=== PATIENT | female | born 1945 | race Caucasian/White ===

== ENCOUNTER 2020-03-06 16:59 | Inpatient (IN) | payer OTHER ==
[2020-03-06] VITALS (15 sets, daily range): BP systolic 57–143; BP diastolic 30–102
[~2020-03-06] VITALS: Ht 160 cm; Wt 68.0 kg
[2020-03-06] MEDS ORDERED: SODIUM CHLORIDE 0.9% 1,000 ML IV ONE (17:12)
[2020-03-06 18:15] LABS: CLARITY URINE CLEAR (CLEAR); COLOR URINE YELLOW (YELLOW); KETONES URINE NEGATIVE (NEGATIVE); LEUKOCYTE ESTERASE URINE 1+ (NEGATIVE); NITRITE URINE NEGATIVE (NEGATIVE); OCCULT BLOOD URINE NEGATIVE (NEGATIVE); PROTEIN URINE NEGATIVE (NEGATIVE); SPECIFIC GRAVITY URINE 1.023 (1.005-1.030); UROBILINOGEN URINE 0.2 E.U./dL (0.2-1.0)
[2020-03-06 18:20] LABS: BASOPHILS % 0.5 % (0.0-2.0); EOSINOPHILS % 0.4 % (0.0-5.0); LYMPHOCYTES % 19.8 % (20.0-50.0); MEAN CORPUSCULAR VOLUME 92.3 fL (81.0-99.0); MEAN PLATELET VOLUME 8.8 fl (7.4-10.4); MONOCYTES % 6.4 % (2.0-8.0); NEUTROPHILS % 72.9 % (40.0-76.0); PLATELET 360 x1000/uL (130-400); RED CELL DISTRIBUTION WIDTH 15.1 % (11.6-14.6)
[2020-03-06 18:23] LABS: CHLORIDE 102 mEq/L (98-107)
[2020-03-06] MEDS ORDERED: CEFTRIAXONE 1 G PREMIX 50 ML IV ONE (18:30)
[2020-03-06 18:34] LABS: HEMOGLOBIN. 6.6 g/dL (12.0-16.0)
[2020-03-06 18:35] LABS: HEMATOCRIT. 20.3 % (36.0-48.0)
[2020-03-06] MEDS ORDERED: MIDAZOLAM HCL 50 MG in DEXTROSE 5% WATER 40 ML IV ONE (18:45)
[2020-03-06] MEDS ORDERED: FENTANYL CITRATE/PF 1,000 MCG in SODIUM CHLORIDE 0.9% 80 ML IV PRN ×2 (18:45→18:55)
[2020-03-06] MEDS ORDERED: MIDAZOLAM HCL 50 MG in DEXTROSE 5% WATER 40 ML IV NR (18:55)
[2020-03-06] MEDS ORDERED: ETOMIDATE 2MG/ML 10ML VIAL IV ONE (19:45)
[2020-03-06] MEDS ORDERED: ASPIRIN 300MG SUPP PR ONE (19:45)
[2020-03-06] MEDS ORDERED: DEXTROSE 50% WATER 50ML SYRINGE IV PRN (21:00)
[2020-03-06] MEDS ORDERED: LORAZEPAM 2MG/ML CPJ IV PRN (21:00)
[2020-03-06 21:01] LABS: BG BASE EXCESS -6.2 mmol/L (-2.0-2.0); BG CARBOXYHEMOGLOBIN 0.3 % (0.5-1.5); BG DEOXYHEMOGLOBIN 0.3 % (0.0-5.0); BG FRACTION INSPIRED OXYGEN 100; BG HCO3 ACT 19.9 mmol/L (22.0-26.0); BG METHEMOGLOBIN 0.5 % (0.0-1.5); BG OXYGEN SATURATION 99.7 % (92.0-98.5); BG OXYHEMOGLOBIN 98.9 % (94.0-97.0); BG PCO2 42.7 mmHg (35.0-45.0); BG PH 7.287 (7.350-7.450); BG PO2 463.7 mmHg (75.0-100.0); BG SAMPLE SITE LEFT FEMORAL; BG TIDAL VOLUME(mL) 500 mL; BG TOTAL HEMOGLOBIN 7.9 g/dL (12.0-18.0); BG VENT MODE VENT - A/C; BG VENT RATE 16 set
[2020-03-06] MEDS ORDERED: SODIUM CHLORIDE 0.9% 1,000 ML IV SCH (21:15)
[2020-03-06] MEDS ORDERED: AZITHROMYCIN 500 MG in DEXT 5% WATER 250 ML IV SCH ×2 (21:25→23:45)
[2020-03-06] MEDS: BLOOD SUGAR DIAGNOSTIC STRIP TEST SCH ×2 (21:25→23:38)
[2020-03-06] MEDS: INSULIN LISPRO 100 UNITS/ML SUBCUT SCH ×2 (21:35→23:42)
[2020-03-06] MEDS ORDERED: NOREPINEPHRINE 4MG/250ML PMX 250 ML IV PRN (21:45)
[2020-03-06] MEDS ORDERED: NOREPINEPHRINE 4 MG in DEXT 5% WATER 246 ML IV PRN ×2 (23:00→23:15)
[2020-03-06] MEDS: SODIUM CHLORIDE 0.9% INJ 3ML FLUSH IVF SCH (23:26)
[2020-03-06] MEDS ORDERED: NOREPINEPHRINE 16 MG in DEXT 5% WATER 234 ML IV PRN (23:30)
[2020-03-07] VITALS (59 sets, daily range): BP systolic 64–192; BP diastolic 41–123
[2020-03-07] MEDS ORDERED: [UNRECOGNIZED DRUG - CODE] PO (00:31)
[2020-03-07] MEDS ORDERED: LISI-604 MT (00:31)
[2020-03-07] MEDS ORDERED: NAPR-681 MT (00:31)
[2020-03-07] MEDS ORDERED: METF1000 MT (00:31)
[2020-03-07] MEDS: FENTANYL CITRATE/PF 1,000 MCG in SODIUM CHLORIDE 0.9% 80 ML IV PRN ×2 (01:01→15:24)
[2020-03-07 05:49] LABS: BASOPHILS % 0.2 % (0.0-2.0); EOSINOPHILS % 1.2 % (0.0-5.0); HEMATOCRIT. 25.1 % (36.0-48.0); HEMOGLOBIN. 8.3 g/dL (12.0-16.0); LYMPHOCYTES % 20.3 % (20.0-50.0); MEAN CORPUSCULAR HEMOGLOBIN 30.2 pg (28.0-32.0); MEAN CORPUSCULAR VOLUME 91.3 fL (81.0-99.0); MEAN PLATELET VOLUME 8.7 fl (7.4-10.4); MONOCYTES % 14.3 % (2.0-8.0); PLATELET 246 x1000/uL (130-400); RED BLOOD CELL COUNT 2.75 mill/uL (4.2-5.4)
[2020-03-07] MEDS: MIDAZOLAM HCL 100 MG in DEXT 5% WATER 80 ML IV PRN (05:55)
[2020-03-07] MEDS: SODIUM CHLORIDE 0.9% INJ 3ML FLUSH IVF SCH ×3 (05:55→20:44)
[2020-03-07 05:56] LABS: CHLORIDE 106 mEq/L (98-107)
[2020-03-07] MEDS: INSULIN LISPRO 100 UNITS/ML SUBCUT SCH ×3 (06:00→17:22)
[2020-03-07 06:05] LABS: PHOSPHORUS 3.1 mg/dL (2.5-4.9)
[2020-03-07] MEDS: BLOOD SUGAR DIAGNOSTIC STRIP TEST SCH ×3 (06:38→17:22)
[2020-03-07 08:50] LABS: BG BASE EXCESS -4.9 mmol/L (-2.0-2.0); BG CARBOXYHEMOGLOBIN 0.1 % (0.5-1.5); BG DEOXYHEMOGLOBIN 2.2 % (0.0-5.0); BG FRACTION INSPIRED OXYGEN 40; BG HCO3 ACT 19.1 mmol/L (22.0-26.0); BG METHEMOGLOBIN 0.1 % (0.0-1.5); BG OXYGEN SATURATION 97.8 % (92.0-98.5); BG OXYHEMOGLOBIN 97.6 % (94.0-97.0); BG PCO2 30.7 mmHg (35.0-45.0); BG PH 7.412 (7.350-7.450); BG PO2 112.9 mmHg (75.0-100.0); BG SAMPLE SITE RIGHT RADIAL; BG TIDAL VOLUME(mL) 500 mL; BG TOTAL HEMOGLOBIN 7.3 g/dL (12.0-18.0); BG VENT MODE VENT - A/C; BG VENT RATE 20 set
[2020-03-07] MEDS: PANTOPRAZOLE SODIUM 40 MG/VIAL IV SCH (08:50)
[2020-03-07 11:57] LABS: VITAMIN B12 SERUM 561 pg/mL (211-911)
[2020-03-07] MEDS: FUROSEMIDE 40MG/4ML VIAL IVP SCH ×2 (13:04→17:21)
[2020-03-07] MEDS ORDERED: CEFTRIAXONE 1 G PREMIX 50 ML IV SCH (18:00)
[2020-03-07] MEDS: CEFTRIAXONE 1 G PREMIX 50 ML IV SCH (18:14)
[2020-03-07] MEDS: AZITHROMYCIN 500 MG in DEXT 5% WATER 250 ML IV SCH (20:44)
[2020-03-07] MEDS: ACETAMINOPHEN 650MG/20.3ML UDC NG PRN (21:09)
[2020-03-08] VITALS (70 sets, daily range): BP systolic 82–141; BP diastolic 37–86
[2020-03-08] MEDS: BLOOD SUGAR DIAGNOSTIC STRIP TEST SCH ×4 (00:13→18:37)
[2020-03-08] MEDS: INSULIN LISPRO 100 UNITS/ML SUBCUT SCH ×4 (00:28→18:56)
[2020-03-08] MEDS: SODIUM CHLORIDE 0.9% INJ 3ML FLUSH IVF SCH ×3 (05:25→22:00)
[2020-03-08 06:38] LABS: BASOPHILS % 0.4 % (0.0-2.0); EOSINOPHILS % 0.7 % (0.0-5.0); HEMATOCRIT. 23.5 % (36.0-48.0); LYMPHOCYTES % 11.3 % (20.0-50.0); MEAN CORPUSCULAR VOLUME 88.3 fL (81.0-99.0); MEAN PLATELET VOLUME 8.6 fl (7.4-10.4); MONOCYTES % 3.8 % (2.0-8.0); NEUTROPHILS % 83.8 % (40.0-76.0); PLATELET 263 x1000/uL (130-400); RED BLOOD CELL COUNT 2.66 mill/uL (4.2-5.4); RED CELL DISTRIBUTION WIDTH 15.6 % (11.6-14.6)
[2020-03-08 06:46] LABS: INR 1.2; PROTHROMBIN TIME 12.8 sec (9.6-11.0)
[2020-03-08 06:53] LABS: CHLORIDE 104 mEq/L (98-107)
[2020-03-08 06:56] LABS: TOTAL IRON BINDING CAPACITY 250 ug/dL (250-450)
[2020-03-08 07:13] LABS: FOLIC ACID (FOLATE) SERUM 16.8 ng/mL (>5.38)
[2020-03-08 08:17] LABS: BG BASE EXCESS -0.7 mmol/L (-2.0-2.0); BG CARBOXYHEMOGLOBIN 0.5 % (0.5-1.5); BG DEOXYHEMOGLOBIN 0.9 % (0.0-5.0); BG HCO3 ACT 21.7 mmol/L (22.0-26.0); BG METHEMOGLOBIN 0.2 % (0.0-1.5); BG OXYGEN SATURATION 99.1 % (92.0-98.5); BG OXYHEMOGLOBIN 98.4 % (94.0-97.0); BG PCO2 26.8 mmHg (35.0-45.0); BG PH 7.526 (7.350-7.450); BG SAMPLE SITE RIGHT RADIAL; BG TIDAL VOLUME(mL) 500 mL; BG TOTAL HEMOGLOBIN 7.7 g/dL (12.0-18.0); BG VENT MODE VENT - A/C; BG VENT RATE 20 set
[2020-03-08] MEDS ORDERED: CYANOCOBALAMIN 1000MCG/ML VIAL IM SCH (08:45)
[2020-03-08] MEDS: FUROSEMIDE 40MG/4ML VIAL IVP SCH ×2 (09:38→17:41)
[2020-03-08] MEDS: ACETAMINOPHEN 650MG/20.3ML UDC NG PRN (09:38)
[2020-03-08] MEDS: PANTOPRAZOLE SODIUM 40 MG/VIAL IV SCH (09:38)
[2020-03-08] MEDS: INSULIN GLARGINE UD 100 UNITS/ML SYR SUBCUT SCH (10:19)
[2020-03-08] MEDS: METOCLOPRAMIDE HCL 10MG/2ML VIAL IV SCH ×2 (12:30→17:41)
[2020-03-08 17:35] LABS: *AMPHETAMINES SCREEN URINE NEGATIVE (NEGATIVE); *BARBITURATES SCREEN URINE NEGATIVE (NEGATIVE)
[2020-03-08 17:36] LABS: *BENZODIAZEPINES SCREEN URINE PRESUMTIVE POSITIVE (NEGATIVE); *COCAINE SCREEN URINE NEGATIVE (NEGATIVE); CANNABINOID URINE SCREEN NEGATIVE (NEGATIVE); METHADONE URINE SCREEN NEGATIVE (NEGATIVE); OPIATES URINE SCREEN NEGATIVE (NEGATIVE); PHENCYCLIDINE URINE SCREEN NEGATIVE (NEGATIVE)
[2020-03-08] MEDS: FENTANYL CITRATE/PF 1,000 MCG in SODIUM CHLORIDE 0.9% 80 ML IV PRN (17:42)
[2020-03-08] MEDS: MIDAZOLAM HCL 100 MG in DEXT 5% WATER 80 ML IV PRN (17:43)
[2020-03-08] MEDS: CEFTRIAXONE 1 G PREMIX 50 ML IV SCH (18:37)
[2020-03-09] VITALS (92 sets, daily range): BP systolic 84–150; BP diastolic 20–94
[2020-03-09] MEDS: METOCLOPRAMIDE HCL 10MG/2ML VIAL IV SCH ×4 (00:44→17:13)
[2020-03-09] MEDS: INSULIN LISPRO 100 UNITS/ML SUBCUT SCH ×4 (00:46→18:36)
[2020-03-09] MEDS: AZITHROMYCIN 500 MG in DEXT 5% WATER 250 ML IV SCH ×2 (01:35→21:05)
[2020-03-09] MEDS: BLOOD SUGAR DIAGNOSTIC STRIP TEST SCH ×4 (05:33→17:14)
[2020-03-09] MEDS: SODIUM CHLORIDE 0.9% INJ 3ML FLUSH IVF SCH ×3 (05:39→22:00)
[2020-03-09 06:37] LABS: HEMATOCRIT. 28.6 % (36.0-48.0); HEMOGLOBIN. 9.9 g/dL (12.0-16.0); MEAN CORPUSCULAR VOLUME 89.6 fL (81.0-99.0); RED BLOOD CELL COUNT 3.19 mill/uL (4.2-5.4); RED CELL DISTRIBUTION WIDTH 15.7 % (11.6-14.6)
[2020-03-09 07:18] LABS: CHLORIDE 107 mEq/L (98-107)
[2020-03-09 08:36] LABS: PLATELET 283 x1000/uL (130-400)
[2020-03-09 08:41] LABS: PLATELET ESTIMATE NORMAL
[2020-03-09] MEDS: FUROSEMIDE 40MG/4ML VIAL IVP SCH ×2 (09:28→17:13)
[2020-03-09] MEDS: PANTOPRAZOLE SODIUM 40 MG/VIAL IV SCH (09:28)
[2020-03-09] MEDS: INSULIN GLARGINE UD 100 UNITS/ML SYR SUBCUT SCH (10:04)
[2020-03-09] MEDS: SUCRALFATE 1 G/10 ML UDC PO SCH ×3 (12:58→21:05)
[2020-03-09] MEDS: CEFTRIAXONE 1 G PREMIX 50 ML IV SCH (17:13)
[2020-03-09] MEDS: MIDAZOLAM HCL 100 MG in DEXT 5% WATER 80 ML IV PRN (21:07)
[2020-03-09] MEDS: FENTANYL CITRATE/PF 1,000 MCG in SODIUM CHLORIDE 0.9% 80 ML IV PRN (21:08)
[2020-03-10] VITALS (93 sets, daily range): BP systolic 108–165; BP diastolic 55–90
[2020-03-10] MEDS: INSULIN LISPRO 100 UNITS/ML SUBCUT SCH ×3 (00:52→14:52)
[2020-03-10] MEDS: METOCLOPRAMIDE HCL 10MG/2ML VIAL IV SCH ×5 (00:53→23:48)
[2020-03-10] MEDS: BLOOD SUGAR DIAGNOSTIC STRIP TEST SCH ×4 (05:46→17:53)
[2020-03-10] MEDS: SODIUM CHLORIDE 0.9% INJ 3ML FLUSH IVF SCH ×3 (05:46→22:11)
[2020-03-10 06:14] LABS: BASOPHILS % 0.1 % (0.0-2.0); EOSINOPHILS % 2.3 % (0.0-5.0); HEMATOCRIT. 27.7 % (36.0-48.0); HEMOGLOBIN. 9.4 g/dL (12.0-16.0); MEAN CORPUSCULAR HEMOGLOBIN 30.2 pg (28.0-32.0); MEAN PLATELET VOLUME 8.7 fl (7.4-10.4); MONOCYTES % 8.7 % (2.0-8.0); NEUTROPHILS % 75.9 % (40.0-76.0); PLATELET 338 x1000/uL (130-400); RED BLOOD CELL COUNT 3.11 mill/uL (4.2-5.4); RED CELL DISTRIBUTION WIDTH 15.8 % (11.6-14.6)
[2020-03-10 06:48] LABS: CHLORIDE 103 mEq/L (98-107)
[2020-03-10 07:26] LABS: BG BASE EXCESS 0.4 mmol/L (-2.0-2.0); BG CARBOXYHEMOGLOBIN 0.3 % (0.5-1.5); BG DEOXYHEMOGLOBIN 1.5 % (0.0-5.0); BG FRACTION INSPIRED OXYGEN 35; BG HCO3 ACT 23.7 mmol/L (22.0-26.0); BG METHEMOGLOBIN 0.3 % (0.0-1.5); BG OXYGEN SATURATION 98.5 % (92.0-98.5); BG OXYHEMOGLOBIN 97.9 % (94.0-97.0); BG PCO2 32.9 mmHg (35.0-45.0); BG PH 7.475 (7.350-7.450); BG SAMPLE SITE RIGHT RADIAL; BG TIDAL VOLUME(mL) 500 mL; BG TOTAL HEMOGLOBIN 9.5 g/dL (12.0-18.0); BG VENT MODE VENT - A/C; BG VENT RATE 14 set
[2020-03-10] MEDS: FUROSEMIDE 40MG/4ML VIAL IVP SCH ×2 (10:17→18:10)
[2020-03-10] MEDS: SUCRALFATE 1 G/10 ML UDC PO SCH ×4 (10:17→21:09)
[2020-03-10] MEDS: PANTOPRAZOLE SODIUM 40 MG/VIAL IV SCH ×2 (10:17→21:09)
[2020-03-10] MEDS: INSULIN GLARGINE UD 100 UNITS/ML SYR SUBCUT SCH ×2 (14:52→22:14)
[2020-03-10] MEDS: CEFTRIAXONE 1 G PREMIX 50 ML IV SCH (18:10)
[2020-03-10] MEDS: ACETAMINOPHEN 650MG/20.3ML UDC NG PRN (21:17)
[2020-03-10] MEDS: AZITHROMYCIN 500 MG in DEXT 5% WATER 250 ML IV SCH (21:18)
[2020-03-11] VITALS (100 sets, daily range): BP systolic 107–182; BP diastolic 53–83
[2020-03-11] MEDS: BLOOD SUGAR DIAGNOSTIC STRIP TEST SCH ×5 (00:09→23:32)
[2020-03-11] MEDS: INSULIN LISPRO 100 UNITS/ML SUBCUT SCH ×5 (00:32→23:31)
[2020-03-11] MEDS: MIDAZOLAM HCL 100 MG in DEXT 5% WATER 80 ML IV PRN (03:43)
[2020-03-11 06:10] LABS: PARTIAL THROMBOPLASTIN TIME 26.9 sec (23.4-31.0); PROTHROMBIN TIME 10.6 sec (9.6-11.0)
[2020-03-11 06:13] LABS: BASOPHILS % 0.8 % (0.0-2.0); EOSINOPHILS % 7.3 % (0.0-5.0); HEMOGLOBIN. 10.3 g/dL (12.0-16.0); LYMPHOCYTES % 18.1 % (20.0-50.0); MEAN CORPUSCULAR HEMOGLOBIN 30.8 pg (28.0-32.0); MEAN CORPUSCULAR VOLUME 89.5 fL (81.0-99.0); MONOCYTES % 12.3 % (2.0-8.0); NEUTROPHILS % 61.5 % (40.0-76.0); PLATELET 387 x1000/uL (130-400); RED BLOOD CELL COUNT 3.35 mill/uL (4.2-5.4); RED CELL DISTRIBUTION WIDTH 15.7 % (11.6-14.6)
[2020-03-11] MEDS: SODIUM CHLORIDE 0.9% INJ 3ML FLUSH IVF SCH ×3 (06:22→22:01)
[2020-03-11] MEDS: METOCLOPRAMIDE HCL 10MG/2ML VIAL IV SCH ×3 (06:24→17:14)
[2020-03-11 06:59] LABS: CHLORIDE 101 mEq/L (98-107)
[2020-03-11] MEDS: SUCRALFATE 1 G/10 ML UDC PO SCH ×5 (07:30→21:09)
[2020-03-11] MEDS: INSULIN GLARGINE UD 100 UNITS/ML SYR SUBCUT SCH ×2 (10:00→22:04)
[2020-03-11] MEDS: PANTOPRAZOLE SODIUM 40 MG/VIAL IV SCH ×2 (10:25→21:09)
[2020-03-11] MEDS: FUROSEMIDE 40MG/4ML VIAL IVP SCH ×2 (10:25→17:14)
[2020-03-11] MEDS ORDERED: POTASSIUM CHLORIDE 20MEQ/PACKET PO NR (14:30)
[2020-03-11] MEDS ORDERED: SIMETHICONE 40 MG/0.6 ML 30ML ONE (16:28)
[2020-03-11] MEDS ORDERED: FENTANYL CITRATE/PF 50MCG/ML 2ML VIAL ONE (16:29)
[2020-03-11] MEDS ORDERED: MIDAZOLAM HCL 5 MG/5 ML VIAL ONE (16:29)
[2020-03-11] MEDS: FENTANYL CITRATE/PF 1,000 MCG in SODIUM CHLORIDE 0.9% 80 ML IV PRN (17:15)
[2020-03-12] VITALS (59 sets, daily range): BP systolic 112–173; BP diastolic 56–79
[2020-03-12] MEDS: METOCLOPRAMIDE HCL 10MG/2ML VIAL IV SCH ×5 (00:07→23:42)
[2020-03-12] MEDS ORDERED: MIDAZOLAM HCL 100 MG in DEXT 5% WATER 80 ML IV PRN (01:15)
[2020-03-12] MEDS: CLONIDINE 0.1MG TABLET NG PRN ×2 (05:14→20:12)
[2020-03-12] MEDS: BLOOD SUGAR DIAGNOSTIC STRIP TEST SCH ×4 (05:51→23:42)
[2020-03-12] MEDS: SODIUM CHLORIDE 0.9% INJ 3ML FLUSH IVF SCH ×3 (05:52→22:06)
[2020-03-12] MEDS: INSULIN LISPRO 100 UNITS/ML SUBCUT SCH ×4 (06:08→23:46)
[2020-03-12 06:35] LABS: BASOPHILS % 0.3 % (0.0-2.0); EOSINOPHILS % 0.9 % (0.0-5.0); HEMATOCRIT. 33.5 % (36.0-48.0); HEMOGLOBIN. 11.2 g/dL (12.0-16.0); LYMPHOCYTES % 7.9 % (20.0-50.0); MEAN CORPUSCULAR HEMOGLOBIN 30.1 pg (28.0-32.0); MEAN CORPUSCULAR VOLUME 89.8 fL (81.0-99.0); MEAN PLATELET VOLUME 8.3 fl (7.4-10.4); MONOCYTES % 11.5 % (2.0-8.0); NEUTROPHILS % 79.4 % (40.0-76.0); PLATELET 463 x1000/uL (130-400); RED BLOOD CELL COUNT 3.72 mill/uL (4.2-5.4); RED CELL DISTRIBUTION WIDTH 15.9 % (11.6-14.6)
[2020-03-12] MEDS: SUCRALFATE 1 G/10 ML UDC PO SCH ×4 (06:52→21:11)
[2020-03-12 06:53] LABS: CHLORIDE 97 mEq/L (98-107)
[2020-03-12] MEDS: FUROSEMIDE 40MG/4ML VIAL IVP SCH ×2 (09:14→18:02)
[2020-03-12] MEDS: INSULIN GLARGINE UD 100 UNITS/ML SYR SUBCUT SCH (09:32)
[2020-03-12] MEDS: ACETAMINOPHEN 650MG/20.3ML UDC NG PRN (18:01)
[2020-03-12] MEDS ORDERED: INSULIN GLARGINE UD 100 UNITS/ML SYR SUBCUT SCH (22:00)
[2020-03-13] VITALS (64 sets, daily range): BP systolic 101–170; BP diastolic 55–109
[2020-03-13] MEDS: ACETAMINOPHEN 650MG/20.3ML UDC NG PRN (00:02)
[2020-03-13] MEDS: BLOOD SUGAR DIAGNOSTIC STRIP TEST SCH ×4 (05:45→23:49)
[2020-03-13] MEDS: METOCLOPRAMIDE HCL 10MG/2ML VIAL IV SCH ×4 (05:45→23:47)
[2020-03-13] MEDS: SODIUM CHLORIDE 0.9% INJ 3ML FLUSH IVF SCH ×3 (05:45→21:17)
[2020-03-13] MEDS: INSULIN LISPRO 100 UNITS/ML SUBCUT SCH ×4 (05:54→23:48)
[2020-03-13] MEDS: SUCRALFATE 1 G/10 ML UDC PO SCH ×4 (06:48→21:17)
[2020-03-13] MEDS: CLONIDINE 0.1MG TABLET NG PRN (08:56)
[2020-03-13] MEDS: FUROSEMIDE 40MG/4ML VIAL IVP SCH ×2 (08:56→17:19)
[2020-03-13] MEDS: INSULIN GLARGINE UD 100 UNITS/ML SYR SUBCUT SCH ×2 (10:53→23:47)
[2020-03-13 15:51] LABS: BASOPHILS % 0.5 % (0.0-2.0); HEMATOCRIT. 32.4 % (36.0-48.0); HEMOGLOBIN. 11.2 g/dL (12.0-16.0); LYMPHOCYTES % 9.5 % (20.0-50.0); MEAN CORPUSCULAR HEMOGLOBIN 30.6 pg (28.0-32.0); MEAN CORPUSCULAR VOLUME 88.6 fL (81.0-99.0); MEAN PLATELET VOLUME 8.1 fl (7.4-10.4); MONOCYTES % 9.7 % (2.0-8.0); NEUTROPHILS % 79.3 % (40.0-76.0); PLATELET 540 x1000/uL (130-400); RED BLOOD CELL COUNT 3.66 mill/uL (4.2-5.4); RED CELL DISTRIBUTION WIDTH 15.8 % (11.6-14.6)
[2020-03-13 15:56] LABS: CHLORIDE 101 mEq/L (98-107)
[2020-03-14] VITALS (38 sets, daily range): BP systolic 93–165; BP diastolic 52–102
[2020-03-14] MEDS: BLOOD SUGAR DIAGNOSTIC STRIP TEST SCH ×4 (05:53→23:53)
[2020-03-14] MEDS: SODIUM CHLORIDE 0.9% INJ 3ML FLUSH IVF SCH (05:53)
[2020-03-14] MEDS: METOCLOPRAMIDE HCL 10MG/2ML VIAL IV SCH ×4 (05:53→23:53)
[2020-03-14] MEDS: INSULIN LISPRO 100 UNITS/ML SUBCUT SCH ×3 (05:54→17:31)
[2020-03-14 06:16] LABS: BASOPHILS % 0.4 % (0.0-2.0); EOSINOPHILS % 0.4 % (0.0-5.0); HEMATOCRIT. 34.8 % (36.0-48.0); HEMOGLOBIN. 11.5 g/dL (12.0-16.0); LYMPHOCYTES % 9.2 % (20.0-50.0); MEAN CORPUSCULAR HEMOGLOBIN 29.6 pg (28.0-32.0); MEAN CORPUSCULAR VOLUME 89.4 fL (81.0-99.0); MEAN PLATELET VOLUME 8.5 fl (7.4-10.4); MONOCYTES % 9.8 % (2.0-8.0); NEUTROPHILS % 80.2 % (40.0-76.0); PLATELET 575 x1000/uL (130-400); RED BLOOD CELL COUNT 3.89 mill/uL (4.2-5.4); RED CELL DISTRIBUTION WIDTH 16.2 % (11.6-14.6)
[2020-03-14] MEDS: ACETAMINOPHEN 650MG/20.3ML UDC NG PRN (07:39)
[2020-03-14] MEDS: SUCRALFATE 1 G/10 ML UDC PO SCH ×4 (10:41→20:20)
[2020-03-14] MEDS: LORAZEPAM 2MG/ML CPJ IV PRN (10:41)
[2020-03-14] MEDS: FUROSEMIDE 40MG/4ML VIAL IVP SCH ×2 (10:42→17:22)
[2020-03-14] MEDS: INSULIN GLARGINE UD 100 UNITS/ML SYR SUBCUT SCH ×2 (11:15→21:27)
[2020-03-14] MEDS ORDERED: VANCOMYCIN 1500MG in DEXTROSE 5% WATER 250ML IV SCH (16:00)
[2020-03-14 16:02] LABS: CLARITY URINE CLEAR (CLEAR); COLOR URINE YELLOW (YELLOW); KETONES URINE NEGATIVE (NEGATIVE); LEUKOCYTE ESTERASE URINE TRACE (NEGATIVE); NITRITE URINE NEGATIVE (NEGATIVE); OCCULT BLOOD URINE 2+ (NEGATIVE); PROTEIN URINE 1+ (NEGATIVE); SPECIFIC GRAVITY URINE 1.018 (1.005-1.030); UROBILINOGEN URINE 0.2 E.U./dL (0.2-1.0)
[2020-03-14] MEDS: CEFEPIME 1,000 MG in DEXTROSE 5% WATER 50 ML IV SCH (17:32)
[2020-03-15] VITALS (31 sets, daily range): BP systolic 101–156; BP diastolic 33–90
[2020-03-15] MEDS: INSULIN LISPRO 100 UNITS/ML SUBCUT SCH ×4 (00:14→18:21)
[2020-03-15] MEDS: BLOOD SUGAR DIAGNOSTIC STRIP TEST SCH ×3 (06:08→18:00)
[2020-03-15] MEDS: METOCLOPRAMIDE HCL 10MG/2ML VIAL IV SCH ×3 (06:08→18:09)
[2020-03-15] MEDS: CEFEPIME 1,000 MG in DEXTROSE 5% WATER 50 ML IV SCH ×2 (06:08→18:19)
[2020-03-15] MEDS: SUCRALFATE 1 G/10 ML UDC PO SCH ×4 (09:23→22:05)
[2020-03-15] MEDS: SODIUM CHLORIDE 0.9% 1,000 ML IV SCH ×2 (09:23→18:10)
[2020-03-15] MEDS: FUROSEMIDE 40MG/4ML VIAL IVP SCH ×2 (09:23→18:08)
[2020-03-15 09:52] LABS: BG BASE EXCESS 7.9 mmol/L (-2.0-2.0); BG CARBOXYHEMOGLOBIN 0.3 % (0.5-1.5); BG DEOXYHEMOGLOBIN 1.2 % (0.0-5.0); BG FRACTION INSPIRED OXYGEN 35; BG HCO3 ACT 31.8 mmol/L (22.0-26.0); BG METHEMOGLOBIN 0.1 % (0.0-1.5); BG OXYGEN SATURATION 98.8 % (92.0-98.5); BG OXYHEMOGLOBIN 98.4 % (94.0-97.0); BG PCO2 41.5 mmHg (35.0-45.0); BG PH 7.502 (7.350-7.450); BG PO2 146.2 mmHg (75.0-100.0); BG PRESSURE SUPPORT 12; BG SAMPLE SITE RIGHT RADIAL; BG TIDAL VOLUME(mL) 500 mL; BG TOTAL HEMOGLOBIN 11.4 g/dL (12.0-18.0); BG VENT MODE VENT - SIMV; BG VENT RATE 8 set
[2020-03-15] MEDS: INSULIN GLARGINE UD 100 UNITS/ML SYR SUBCUT SCH ×2 (09:52→22:05)
[2020-03-15] MEDS: VANCOMYCIN 1 G PREMIX 200 ML IV SCH (10:05)
[2020-03-15 12:29] LABS: BG BASE EXCESS 6.7 mmol/L (-2.0-2.0); BG CARBOXYHEMOGLOBIN 0.1 % (0.5-1.5); BG DEOXYHEMOGLOBIN 0.8 % (0.0-5.0); BG FRACTION INSPIRED OXYGEN 35; BG HCO3 ACT 28.1 mmol/L (22.0-26.0); BG METHEMOGLOBIN 0.2 % (0.0-1.5); BG OXYGEN SATURATION 99.2 % (92.0-98.5); BG OXYHEMOGLOBIN 98.9 % (94.0-97.0); BG PCO2 29.8 mmHg (35.0-45.0); BG PH 7.593 (7.350-7.450); BG PO2 147.3 mmHg (75.0-100.0); BG PRESSURE SUPPORT 14; BG SAMPLE SITE RIGHT BRACHIAL; BG TIDAL VOLUME(mL) 500 mL; BG VENT MODE VENT - SIMV; BG VENT RATE 6 set
[2020-03-16] VITALS (29 sets, daily range): BP systolic 101–146; BP diastolic 47–79
[2020-03-16] MEDS: BLOOD SUGAR DIAGNOSTIC STRIP TEST SCH ×4 (00:31→23:23)
[2020-03-16] MEDS: METOCLOPRAMIDE HCL 10MG/2ML VIAL IV SCH ×5 (00:31→23:09)
[2020-03-16] MEDS: INSULIN LISPRO 100 UNITS/ML SUBCUT SCH ×5 (00:35→23:23)
[2020-03-16] MEDS: SODIUM CHLORIDE 0.9% 1,000 ML IV SCH ×3 (00:36→23:29)
[2020-03-16] MEDS: VANCOMYCIN 1 G PREMIX 200 ML IV SCH (04:41)
[2020-03-16] MEDS: CEFEPIME 1,000 MG in DEXTROSE 5% WATER 50 ML IV SCH ×2 (05:55→17:33)
[2020-03-16] MEDS: SUCRALFATE 1 G/10 ML UDC PO SCH ×4 (08:22→21:18)
[2020-03-16] MEDS: FUROSEMIDE 40MG/4ML VIAL IVP SCH ×2 (08:22→17:33)
[2020-03-16] MEDS: INSULIN GLARGINE UD 100 UNITS/ML SYR SUBCUT SCH ×2 (11:10→23:05)
[2020-03-16] MEDS ORDERED: PANTOPRAZOLE SODIUM 40 MG/VIAL IV SCH (11:45)
[2020-03-16 12:20] LABS: BG BASE EXCESS 8.1 mmol/L (-2.0-2.0); BG CARBOXYHEMOGLOBIN 0.3 % (0.5-1.5); BG DEOXYHEMOGLOBIN 1.7 % (0.0-5.0); BG FRACTION INSPIRED OXYGEN 35; BG HCO3 ACT 31.7 mmol/L (22.0-26.0); BG METHEMOGLOBIN 0.4 % (0.0-1.5); BG OXYGEN SATURATION 98.3 % (92.0-98.5); BG OXYHEMOGLOBIN 97.6 % (94.0-97.0); BG PCO2 40.6 mmHg (35.0-45.0); BG PH 7.511 (7.350-7.450); BG PO2 136.1 mmHg (75.0-100.0); BG PRESSURE SUPPORT 14; BG SAMPLE SITE RIGHT RADIAL; BG TOTAL HEMOGLOBIN 10.8 g/dL (12.0-18.0); BG VENT MODE VENT - CPAP
[2020-03-16] MEDS: LORAZEPAM 2MG/ML CPJ IV PRN (15:56)
[2020-03-16] MEDS: PANTOPRAZOLE SODIUM 40 MG/VIAL IV SCH (21:18)
[2020-03-17] VITALS (35 sets, daily range): BP systolic 95–142; BP diastolic 37–69
[2020-03-17] MEDS: LORAZEPAM 2MG/ML CPJ IV PRN ×2 (03:34→20:17)
[2020-03-17] MEDS: CEFEPIME 1,000 MG in DEXTROSE 5% WATER 50 ML IV SCH ×2 (05:33→17:00)
[2020-03-17] MEDS: BLOOD SUGAR DIAGNOSTIC STRIP TEST SCH ×3 (05:33→17:01)
[2020-03-17] MEDS: METOCLOPRAMIDE HCL 10MG/2ML VIAL IV SCH ×4 (05:33→23:03)
[2020-03-17] MEDS: INSULIN LISPRO 100 UNITS/ML SUBCUT SCH ×4 (05:34→23:09)
[2020-03-17 08:22] LABS: CHLORIDE 115 mEq/L (98-107)
[2020-03-17] MEDS: SUCRALFATE 1 G/10 ML UDC PO SCH ×4 (08:26→20:17)
[2020-03-17] MEDS: FUROSEMIDE 40MG/4ML VIAL IVP SCH ×2 (08:26→16:28)
[2020-03-17] MEDS: PANTOPRAZOLE SODIUM 40 MG/VIAL IV SCH ×2 (08:26→20:17)
[2020-03-17] MEDS: SODIUM CHLORIDE 0.9% 1,000 ML IV SCH (10:10)
[2020-03-17] MEDS: INSULIN GLARGINE UD 100 UNITS/ML SYR SUBCUT SCH ×2 (10:57→23:03)
[2020-03-17] MEDS ORDERED: POTASSIUM CHLORIDE 20MEQ/PACKET NG SCH (13:15)
[2020-03-17] MEDS: SODIUM CHLORIDE 0.45% 1,000 ML IV SCH (15:50)
[2020-03-18] VITALS (41 sets, daily range): BP systolic 95–145; BP diastolic 28–87
[2020-03-18] MEDS: ONDANSETRON HCL 4MG/2ML INJ IV PRN (04:33)
[2020-03-18] MEDS: METOCLOPRAMIDE HCL 10MG/2ML VIAL IV SCH ×4 (05:39→23:06)
[2020-03-18] MEDS: CEFEPIME 1,000 MG in DEXTROSE 5% WATER 50 ML IV SCH ×2 (05:39→17:44)
[2020-03-18] MEDS: INSULIN LISPRO 100 UNITS/ML SUBCUT SCH ×4 (06:00→23:01)
[2020-03-18] MEDS: BLOOD SUGAR DIAGNOSTIC STRIP TEST SCH ×5 (06:00→23:01)
[2020-03-18 06:34] LABS: EOSINOPHILS % 7.6 % (0.0-5.0); HEMATOCRIT. 30.8 % (36.0-48.0); HEMOGLOBIN. 10.2 g/dL (12.0-16.0); LYMPHOCYTES % 14.3 % (20.0-50.0); MEAN CORPUSCULAR HEMOGLOBIN 29.9 pg (28.0-32.0); MEAN CORPUSCULAR VOLUME 90.2 fL (81.0-99.0); MEAN PLATELET VOLUME 9.4 fl (7.4-10.4); MONOCYTES % 8.7 % (2.0-8.0); NEUTROPHILS % 68.4 % (40.0-76.0); PLATELET 538 x1000/uL (130-400); RED BLOOD CELL COUNT 3.42 mill/uL (4.2-5.4); RED CELL DISTRIBUTION WIDTH 15.6 % (11.6-14.6)
[2020-03-18 08:09] LABS: CHLORIDE 114 mEq/L (98-107)
[2020-03-18 09:54] LABS: BG BASE EXCESS 5.8 mmol/L (-2.0-2.0); BG CARBOXYHEMOGLOBIN 0.3 % (0.5-1.5); BG DEOXYHEMOGLOBIN 1.6 % (0.0-5.0); BG FRACTION INSPIRED OXYGEN 35; BG HCO3 ACT 30.6 mmol/L (22.0-26.0); BG METHEMOGLOBIN 0.3 % (0.0-1.5); BG OXYGEN SATURATION 98.4 % (92.0-98.5); BG OXYHEMOGLOBIN 97.8 % (94.0-97.0); BG PCO2 45.3 mmHg (35.0-45.0); BG PH 7.447 (7.350-7.450); BG PO2 115.1 mmHg (75.0-100.0); BG PRESSURE SUPPORT 8; BG SAMPLE SITE RIGHT RADIAL; BG TOTAL HEMOGLOBIN 10.2 g/dL (12.0-18.0); BG VENT MODE VENT - CPAP
[2020-03-18] MEDS: SUCRALFATE 1 G/10 ML UDC PO SCH ×4 (09:55→20:37)
[2020-03-18] MEDS: PANTOPRAZOLE SODIUM 40 MG/VIAL IV SCH ×2 (09:55→20:37)
[2020-03-18] MEDS: FUROSEMIDE 40MG/4ML VIAL IVP SCH ×2 (09:55→17:44)
[2020-03-18] MEDS: SODIUM CHLORIDE 0.45% 1,000 ML IV SCH (09:56)
[2020-03-18] MEDS: INSULIN GLARGINE UD 100 UNITS/ML SYR SUBCUT SCH ×2 (09:56→23:02)
[2020-03-19] VITALS (97 sets, daily range): BP systolic 57–182; BP diastolic 30–128
[2020-03-19] MEDS: IPRATROPIUM/ALBUTEROL 0.5-3(2.5)MG/3ML NEB HHN PRN ×2 (02:16→08:35)
[2020-03-19] MEDS ORDERED: RACEPINEPHRINE 2.25% 0.5ML NEB VIAL HHN PRN (03:15)
[2020-03-19] MEDS ORDERED: SODIUM BICARBONATE 8.4% MEQ/ML 50ML VIAL IV ONE (04:25)
[2020-03-19] MEDS ORDERED: ATROPINE SULFATE 1MG/10ML SYR ONE (04:25)
[2020-03-19] MEDS: PHENYLEPHRINE 40 MG in DEXT 5% WATER 246 ML IV PRN ×2 (04:53→16:55)
[2020-03-19] MEDS: BLOOD SUGAR DIAGNOSTIC STRIP TEST SCH ×4 (05:12→23:02)
[2020-03-19] MEDS: CEFEPIME 1,000 MG in DEXTROSE 5% WATER 50 ML IV SCH ×2 (05:35→17:10)
[2020-03-19] MEDS: INSULIN LISPRO 100 UNITS/ML SUBCUT SCH ×4 (05:35→23:02)
[2020-03-19] MEDS: METOCLOPRAMIDE HCL 10MG/2ML VIAL IV SCH ×4 (05:35→23:03)
[2020-03-19 05:50] LABS: BG BASE EXCESS 3.5 mmol/L (-2.0-2.0); BG CARBOXYHEMOGLOBIN 0.3 % (0.5-1.5); BG DEOXYHEMOGLOBIN 0.9 % (0.0-5.0); BG FRACTION INSPIRED OXYGEN 100; BG HCO3 ACT 26.6 mmol/L (22.0-26.0); BG OXYGEN SATURATION 99.1 % (92.0-98.5); BG OXYHEMOGLOBIN 98.8 % (94.0-97.0); BG PCO2 34.6 mmHg (35.0-45.0); BG PH 7.504 (7.350-7.450); BG PO2 181.8 mmHg (75.0-100.0); BG SAMPLE SITE LEFT BRACHIAL; BG TIDAL VOLUME(mL) 500 mL; BG VENT MODE VENT - A/C; BG VENT RATE 16 set
[2020-03-19] MEDS ORDERED: FENTANYL CITRATE/PF 1,000 MCG in SODIUM CHLORIDE 0.9% 80 ML IV PRN (06:30)
[2020-03-19] MEDS ORDERED: MIDAZOLAM HCL 100 MG in DEXT 5% WATER 80 ML IV PRN (06:30)
[2020-03-19 07:47] LABS: HEMATOCRIT. 29.1 % (36.0-48.0); HEMOGLOBIN. 9.6 g/dL (12.0-16.0); MEAN CORPUSCULAR HEMOGLOBIN 29.2 pg (28.0-32.0); MEAN CORPUSCULAR VOLUME 88.8 fL (81.0-99.0); MEAN PLATELET VOLUME 9.1 fl (7.4-10.4); PLATELET 605 x1000/uL (130-400); RED BLOOD CELL COUNT 3.27 mill/uL (4.2-5.4); RED CELL DISTRIBUTION WIDTH 15.4 % (11.6-14.6)
[2020-03-19 08:04] LABS: CHLORIDE 107 mEq/L (98-107)
[2020-03-19] MEDS: PANTOPRAZOLE SODIUM 40 MG/VIAL IV SCH ×2 (08:22→21:02)
[2020-03-19] MEDS: SUCRALFATE 1 G/10 ML UDC PO SCH ×4 (08:22→21:02)
[2020-03-19] MEDS: FUROSEMIDE 40MG/4ML VIAL IVP SCH ×2 (08:23→16:48)
[2020-03-19] MEDS: MULTIVITAMINS,THER W-MINERALS TABLET PO SCH (08:23)
[2020-03-19] MEDS: ACETAMINOPHEN 650MG/20.3ML UDC NG PRN ×2 (08:37→16:47)
[2020-03-19] MEDS: SODIUM CHLORIDE 0.45% 1,000 ML IV SCH (08:37)
[2020-03-19] MEDS ORDERED: PROPOFOL 10MG/ML 100ML 100 ML IV PRN (10:00)
[2020-03-19] MEDS: INSULIN GLARGINE UD 100 UNITS/ML SYR SUBCUT SCH ×2 (10:23→22:00)
[2020-03-19 16:42] LABS: PLATELET ESTIMATE INCREASED
[2020-03-19 19:08] LABS: HEMATOCRIT 31.7 % (36.0-48.0); HEMOGLOBIN 10.2 g/dL (12.0-16.0)
[2020-03-19] MEDS: DEXT 5%/0.45% NACL 1000ML 1,000 ML IV SCH (19:27)
[2020-03-20] VITALS (96 sets, daily range): BP systolic 55–154; BP diastolic 17–115
[2020-03-20] MEDS: IPRATROPIUM/ALBUTEROL 0.5-3(2.5)MG/3ML NEB HHN PRN ×3 (00:36→15:57)
[2020-03-20] MEDS: PHENYLEPHRINE 40 MG in DEXT 5% WATER 246 ML IV PRN ×2 (02:18→16:20)
[2020-03-20] MEDS: BLOOD SUGAR DIAGNOSTIC STRIP TEST SCH ×4 (05:34→23:22)
[2020-03-20] MEDS: METOCLOPRAMIDE HCL 10MG/2ML VIAL IV SCH ×4 (05:35→23:30)
[2020-03-20] MEDS: INSULIN LISPRO 100 UNITS/ML SUBCUT SCH ×4 (05:39→23:30)
[2020-03-20 06:26] LABS: BASOPHILS % 1.1 % (0.0-2.0); EOSINOPHILS % 8.9 % (0.0-5.0); HEMATOCRIT. 31.1 % (36.0-48.0); LYMPHOCYTES % 17.7 % (20.0-50.0); MEAN CORPUSCULAR HEMOGLOBIN 28.9 pg (28.0-32.0); MEAN CORPUSCULAR VOLUME 90.1 fL (81.0-99.0); MEAN PLATELET VOLUME 9.4 fl (7.4-10.4); MONOCYTES % 8.3 % (2.0-8.0); PLATELET 558 x1000/uL (130-400); RED BLOOD CELL COUNT 3.46 mill/uL (4.2-5.4); RED CELL DISTRIBUTION WIDTH 15.8 % (11.6-14.6)
[2020-03-20] MEDS: FUROSEMIDE 40MG/4ML VIAL IVP SCH ×2 (08:31→16:52)
[2020-03-20] MEDS: MULTIVITAMINS,THER W-MINERALS TABLET PO SCH (08:31)
[2020-03-20] MEDS: PANTOPRAZOLE SODIUM 40 MG/VIAL IV SCH ×2 (08:31→20:46)
[2020-03-20] MEDS: SUCRALFATE 1 G/10 ML UDC PO SCH ×4 (08:31→20:46)
[2020-03-20] MEDS: INSULIN GLARGINE UD 100 UNITS/ML SYR SUBCUT SCH ×2 (08:32→21:17)
[2020-03-20 10:01] LABS: BG BASE EXCESS 5.7 mmol/L (-2.0-2.0); BG CARBOXYHEMOGLOBIN 0.3 % (0.5-1.5); BG DEOXYHEMOGLOBIN 0.6 % (0.0-5.0); BG FRACTION INSPIRED OXYGEN 70; BG HCO3 ACT 27.6 mmol/L (22.0-26.0); BG METHEMOGLOBIN 0.3 % (0.0-1.5); BG OXYGEN SATURATION 99.4 % (92.0-98.5); BG OXYHEMOGLOBIN 98.8 % (94.0-97.0); BG PCO2 30.3 mmHg (35.0-45.0); BG PH 7.577 (7.350-7.450); BG PO2 314.1 mmHg (75.0-100.0); BG SAMPLE SITE RIGHT RADIAL; BG TIDAL VOLUME(mL) 500 mL; BG TOTAL HEMOGLOBIN 9.6 g/dL (12.0-18.0); BG VENT MODE VENT - A/C; BG VENT RATE 12 set
[2020-03-20] MEDS ORDERED: PROPOFOL 10MG/ML 100ML 100 ML IV PRN (11:15)
[2020-03-20 13:37] LABS: BG BASE EXCESS 4.7 mmol/L (-2.0-2.0); BG CARBOXYHEMOGLOBIN 0.3 % (0.5-1.5); BG CPAP (cmH2O) 0 cm(H2O); BG DEOXYHEMOGLOBIN 2.2 % (0.0-5.0); BG HCO3 ACT 28.7 mmol/L (22.0-26.0); BG METHEMOGLOBIN 0.3 % (0.0-1.5); BG OXYGEN SATURATION 97.8 % (92.0-98.5); BG OXYHEMOGLOBIN 97.2 % (94.0-97.0); BG PCO2 40.1 mmHg (35.0-45.0); BG PH 7.473 (7.350-7.450); BG PO2 110.7 mmHg (75.0-100.0); BG SAMPLE SITE RIGHT RADIAL; BG TOTAL HEMOGLOBIN 9.2 g/dL (12.0-18.0); BG VENT MODE VENT - CPAP
[2020-03-20] MEDS: DEXT 5%/0.45% NACL 1000ML 1,000 ML IV SCH (16:20)
[2020-03-20 19:52] LABS: HEMATOCRIT 27.4 % (36.0-48.0); HEMOGLOBIN 8.9 g/dL (12.0-16.0)
[2020-03-21] VITALS (99 sets, daily range): BP systolic 68–147; BP diastolic 23–96
[2020-03-21] MEDS: PHENYLEPHRINE 40 MG in DEXT 5% WATER 246 ML IV PRN (03:57)
[2020-03-21] MEDS: INSULIN LISPRO 100 UNITS/ML SUBCUT SCH ×3 (05:08→18:00)
[2020-03-21] MEDS: BLOOD SUGAR DIAGNOSTIC STRIP TEST SCH ×3 (05:08→18:06)
[2020-03-21] MEDS: METOCLOPRAMIDE HCL 10MG/2ML VIAL IV SCH ×3 (05:09→17:54)
[2020-03-21 06:30] LABS: CHLORIDE 101 mEq/L (98-107)
[2020-03-21 07:19] LABS: BASOPHILS % 0.8 % (0.0-2.0); EOSINOPHILS % 9.4 % (0.0-5.0); HEMATOCRIT. 25.4 % (36.0-48.0); HEMOGLOBIN. 8.3 g/dL (12.0-16.0); LYMPHOCYTES % 15.2 % (20.0-50.0); MEAN CORPUSCULAR HEMOGLOBIN 29.3 pg (28.0-32.0); MEAN CORPUSCULAR VOLUME 89.2 fL (81.0-99.0); MEAN PLATELET VOLUME 9.5 fl (7.4-10.4); MONOCYTES % 8.2 % (2.0-8.0); NEUTROPHILS % 66.4 % (40.0-76.0); PLATELET 547 x1000/uL (130-400); RED BLOOD CELL COUNT 2.84 mill/uL (4.2-5.4); RED CELL DISTRIBUTION WIDTH 15.4 % (11.6-14.6)
[2020-03-21] MEDS: FUROSEMIDE 40MG/4ML VIAL IVP SCH ×2 (08:28→16:37)
[2020-03-21] MEDS: MULTIVITAMINS,THER W-MINERALS TABLET PO SCH (08:28)
[2020-03-21] MEDS: SUCRALFATE 1 G/10 ML UDC PO SCH ×4 (08:28→21:25)
[2020-03-21] MEDS: PANTOPRAZOLE SODIUM 40 MG/VIAL IV SCH ×2 (08:28→21:25)
[2020-03-21] MEDS ORDERED: POTASSIUM CHLORIDE INJ 40 MEQ in DEXT 5% WATER 250 ML IV NR (10:00)
[2020-03-21] MEDS: INSULIN GLARGINE UD 100 UNITS/ML SYR SUBCUT SCH ×2 (10:55→21:25)
[2020-03-21] MEDS: DEXT 5%/0.45% NACL 1000ML 1,000 ML IV SCH (11:11)
[2020-03-21] MEDS: ACETAMINOPHEN 650MG/20.3ML UDC NG PRN (15:01)
[2020-03-21 20:33] LABS: HEMATOCRIT 25.7 % (36.0-48.0); HEMOGLOBIN 8.4 g/dL (12.0-16.0)
[2020-03-22] VITALS (55 sets, daily range): BP systolic 75–158; BP diastolic 28–100
[2020-03-22] MEDS: ACETAMINOPHEN 650MG/20.3ML UDC NG PRN (00:41)
[2020-03-22] MEDS: METOCLOPRAMIDE HCL 10MG/2ML VIAL IV SCH ×5 (00:43→23:51)
[2020-03-22] MEDS: BLOOD SUGAR DIAGNOSTIC STRIP TEST SCH ×5 (00:43→22:04)
[2020-03-22] MEDS: INSULIN LISPRO 100 UNITS/ML SUBCUT SCH ×5 (06:00→22:12)
[2020-03-22] MEDS: FUROSEMIDE 40MG/4ML VIAL IVP SCH ×2 (08:23→16:17)
[2020-03-22] MEDS: SUCRALFATE 1 G/10 ML UDC PO SCH ×4 (08:23→22:00)
[2020-03-22] MEDS: MULTIVITAMINS,THER W-MINERALS TABLET PO SCH (08:23)
[2020-03-22] MEDS: PANTOPRAZOLE SODIUM 40 MG/VIAL IV SCH ×2 (08:23→22:01)
[2020-03-22] MEDS: DEXT 5%/0.45% NACL 1000ML 1,000 ML IV SCH (08:25)
[2020-03-22] MEDS: INSULIN GLARGINE UD 100 UNITS/ML SYR SUBCUT SCH ×2 (10:00→22:01)
[2020-03-23] VITALS (58 sets, daily range): BP systolic 86–154; BP diastolic 28–117
[2020-03-23] MEDS: IPRATROPIUM/ALBUTEROL 0.5-3(2.5)MG/3ML NEB HHN PRN ×3 (00:10→20:20)
[2020-03-23] MEDS: ACETYLCYSTEINE 100MG/ML 10% VIAL 4ML INH SCH ×3 (00:10→20:20)
[2020-03-23] MEDS: DEXT 5%/0.45% NACL 1000ML 1,000 ML IV SCH ×2 (06:03→17:09)
[2020-03-23] MEDS: METOCLOPRAMIDE HCL 10MG/2ML VIAL IV SCH ×4 (06:04→23:22)
[2020-03-23] MEDS: SUCRALFATE 1 G/10 ML UDC PO SCH ×4 (06:36→20:17)
[2020-03-23] MEDS: BLOOD SUGAR DIAGNOSTIC STRIP TEST SCH ×4 (06:38→20:28)
[2020-03-23] MEDS: INSULIN LISPRO 100 UNITS/ML SUBCUT SCH ×4 (06:38→20:31)
[2020-03-23] MEDS: MULTIVITAMINS,THER W-MINERALS TABLET PO SCH (08:57)
[2020-03-23] MEDS: FUROSEMIDE 40MG/4ML VIAL IVP SCH (08:57)
[2020-03-23] MEDS: PANTOPRAZOLE SODIUM 40 MG/VIAL IV SCH ×2 (08:57→20:16)
[2020-03-23 10:44] LABS: BASOPHILS % 0.7 % (0.0-2.0); EOSINOPHILS % 6.4 % (0.0-5.0); HEMATOCRIT. 24.5 % (36.0-48.0); HEMOGLOBIN. 8.2 g/dL (12.0-16.0); LYMPHOCYTES % 22.5 % (20.0-50.0); MEAN CORPUSCULAR HEMOGLOBIN 29.7 pg (28.0-32.0); MEAN CORPUSCULAR VOLUME 88.4 fL (81.0-99.0); MEAN PLATELET VOLUME 9.4 fl (7.4-10.4); MONOCYTES % 7.8 % (2.0-8.0); NEUTROPHILS % 62.6 % (40.0-76.0); PLATELET 536 x1000/uL (130-400); RED BLOOD CELL COUNT 2.77 mill/uL (4.2-5.4); RED CELL DISTRIBUTION WIDTH 15.3 % (11.6-14.6)
[2020-03-23 10:52] LABS: CHLORIDE 101 mEq/L (98-107)
[2020-03-23] MEDS ORDERED: FUROSEMIDE 40MG/4ML VIAL IVP SCH (11:30)
[2020-03-23] MEDS ORDERED: POTASSIUM CHLORIDE 20MEQ TABLET SR PO NR ×2 (11:44→14:00)
[2020-03-23] MEDS: INSULIN GLARGINE UD 100 UNITS/ML SYR SUBCUT SCH ×2 (12:01→22:47)
[2020-03-23] MEDS: ACETAMINOPHEN 650MG/20.3ML UDC NG PRN ×2 (12:51→20:17)
[2020-03-24] VITALS (17 sets, daily range): BP systolic 77–147; BP diastolic 48–83
[2020-03-24] MEDS: ACETAMINOPHEN 650MG/20.3ML UDC NG PRN ×2 (04:45→17:15)
[2020-03-24] MEDS: METOCLOPRAMIDE HCL 10MG/2ML VIAL IV SCH ×3 (04:48→18:25)
[2020-03-24] MEDS: SUCRALFATE 1 G/10 ML UDC PO SCH ×4 (04:48→21:51)
[2020-03-24] MEDS: BLOOD SUGAR DIAGNOSTIC STRIP TEST SCH ×4 (07:30→21:00)
[2020-03-24] MEDS: INSULIN LISPRO 100 UNITS/ML SUBCUT SCH ×4 (07:30→22:12)
[2020-03-24] MEDS: ACETYLCYSTEINE 100MG/ML 10% VIAL 4ML INH SCH ×2 (09:39→21:12)
[2020-03-24] MEDS: IPRATROPIUM/ALBUTEROL 0.5-3(2.5)MG/3ML NEB HHN PRN ×2 (09:40→21:12)
[2020-03-24] MEDS: FUROSEMIDE 40MG/4ML VIAL IVP SCH (11:13)
[2020-03-24] MEDS: MULTIVITAMINS,THER W-MINERALS TABLET PO SCH (11:14)
[2020-03-24] MEDS: POTASSIUM CHLORIDE 20MEQ TABLET SR PO SCH (11:14)
[2020-03-24] MEDS: INSULIN GLARGINE UD 100 UNITS/ML SYR SUBCUT SCH ×2 (11:15→22:19)
[2020-03-24] MEDS: PANTOPRAZOLE SODIUM 40 MG/VIAL IV SCH ×2 (13:06→21:51)
[2020-03-24] MEDS: KETOROLAC 30MG/ML VIAL IV PRN (21:51)
[2020-03-24] MEDS: DEXT 5%/0.45% NACL 1000ML 1,000 ML IV SCH (22:13)
[2020-03-25] VITALS (12 sets, daily range): BP systolic 111–150; BP diastolic 33–111
[2020-03-25] MEDS: ONDANSETRON HCL 4MG/2ML INJ IV PRN (00:48)
[2020-03-25] MEDS: METOCLOPRAMIDE HCL 10MG/2ML VIAL IV SCH ×5 (00:48→23:06)
[2020-03-25] MEDS: KETOROLAC 30MG/ML VIAL IV PRN ×4 (04:17→23:00)
[2020-03-25] MEDS: SUCRALFATE 1 G/10 ML UDC PO SCH ×4 (06:49→20:49)
[2020-03-25] MEDS: BLOOD SUGAR DIAGNOSTIC STRIP TEST SCH ×4 (07:30→20:49)
[2020-03-25] MEDS: ACETYLCYSTEINE 100MG/ML 10% VIAL 4ML INH SCH ×2 (08:04→20:44)
[2020-03-25] MEDS: IPRATROPIUM/ALBUTEROL 0.5-3(2.5)MG/3ML NEB HHN PRN ×2 (08:05→20:44)
[2020-03-25] MEDS: MULTIVITAMINS,THER W-MINERALS TABLET PO SCH (09:01)
[2020-03-25] MEDS: POTASSIUM CHLORIDE 20MEQ TABLET SR PO SCH (09:02)
[2020-03-25] MEDS: FUROSEMIDE 40MG/4ML VIAL IVP SCH (09:02)
[2020-03-25] MEDS: INSULIN LISPRO 100 UNITS/ML SUBCUT SCH ×4 (09:03→21:06)
[2020-03-25] MEDS: PANTOPRAZOLE SODIUM 40 MG/VIAL IV SCH ×2 (10:43→20:49)
[2020-03-25] MEDS: INSULIN GLARGINE UD 100 UNITS/ML SYR SUBCUT SCH ×2 (10:44→21:06)
[2020-03-25] MEDS: DEXT 5%/0.45% NACL 1000ML 1,000 ML IV SCH (15:17)
[2020-03-25 16:19] LABS: HEMATOCRIT. 24.5 % (36.0-48.0); MEAN CORPUSCULAR HEMOGLOBIN 29.6 pg (28.0-32.0); MEAN CORPUSCULAR VOLUME 90.1 fL (81.0-99.0); MEAN PLATELET VOLUME 8.7 fl (7.4-10.4); PLATELET 536 x1000/uL (130-400); RED BLOOD CELL COUNT 2.71 mill/uL (4.2-5.4); RED CELL DISTRIBUTION WIDTH 15.9 % (11.6-14.6)
[2020-03-25 16:42] LABS: PLATELET ESTIMATE INCREASED
[2020-03-25 17:45] LABS: CHLORIDE 103 mEq/L (98-107)
[2020-03-25] MEDS ORDERED: SODIUM POLYSTYRENE SULFONATE 15 G/60 ML BOT PO NR (18:45)
[2020-03-25] MEDS: GABAPENTIN 100MG CAPSULE PO SCH (21:00)
[2020-03-26] VITALS (12 sets, daily range): BP systolic 108–162; BP diastolic 49–119
[2020-03-26] MEDS: BISACODYL 10MG SUPP PR PRN (00:20)
[2020-03-26] MEDS: ZOLPIDEM TARTRATE 5MG TABLET PO PRN ×2 (00:20→23:52)
[2020-03-26] MEDS: ACETAMINOPHEN 650MG/20.3ML UDC NG PRN (01:43)
[2020-03-26] MEDS: METOCLOPRAMIDE HCL 10MG/2ML VIAL IV SCH ×4 (05:46→23:48)
[2020-03-26] MEDS: GABAPENTIN 100MG CAPSULE PO SCH ×3 (05:47→21:05)
[2020-03-26] MEDS: SUCRALFATE 1 G/10 ML UDC PO SCH ×4 (06:44→21:03)
[2020-03-26 07:16] LABS: BASOPHILS % 1.4 % (0.0-2.0); EOSINOPHILS % 9.9 % (0.0-5.0); HEMOGLOBIN. 8.2 g/dL (12.0-16.0); LYMPHOCYTES % 20.8 % (20.0-50.0); MEAN CORPUSCULAR HEMOGLOBIN 29.7 pg (28.0-32.0); MEAN PLATELET VOLUME 9.2 fl (7.4-10.4); MONOCYTES % 7.3 % (2.0-8.0); NEUTROPHILS % 60.6 % (40.0-76.0); PLATELET 476 x1000/uL (130-400); RED BLOOD CELL COUNT 2.74 mill/uL (4.2-5.4)
[2020-03-26 07:23] LABS: CHLORIDE 107 mEq/L (98-107)
[2020-03-26] MEDS: BLOOD SUGAR DIAGNOSTIC STRIP TEST SCH ×4 (07:30→21:00)
[2020-03-26] MEDS: INSULIN LISPRO 100 UNITS/ML SUBCUT SCH ×4 (07:30→21:35)
[2020-03-26] MEDS: IPRATROPIUM/ALBUTEROL 0.5-3(2.5)MG/3ML NEB HHN PRN (07:51)
[2020-03-26] MEDS: FUROSEMIDE 40MG/4ML VIAL IVP SCH (08:30)
[2020-03-26] MEDS: MULTIVITAMINS,THER W-MINERALS TABLET PO SCH (08:30)
[2020-03-26] MEDS: PANTOPRAZOLE SODIUM 40 MG/VIAL IV SCH ×2 (08:30→21:03)
[2020-03-26] MEDS: KETOROLAC 30MG/ML VIAL IV PRN ×3 (09:22→22:45)
[2020-03-26] MEDS: INSULIN GLARGINE UD 100 UNITS/ML SYR SUBCUT SCH ×2 (10:08→22:50)
[2020-03-26] MEDS: ASPIRIN 81MG EC TABLET PO SCH (15:20)
[2020-03-26] MEDS: ACETYLCYSTEINE 100MG/ML 10% VIAL 4ML INH SCH (21:05)
[2020-03-26] MEDS: ONDANSETRON HCL 4MG/2ML INJ IV PRN (23:53)
[2020-03-27] VITALS (12 sets, daily range): BP systolic 90–148; BP diastolic 50–82
[2020-03-27] MEDS: METOCLOPRAMIDE HCL 10MG/2ML VIAL IV SCH ×3 (05:00→18:06)
[2020-03-27] MEDS: GABAPENTIN 100MG CAPSULE PO SCH ×3 (05:00→21:18)
[2020-03-27] MEDS: SUCRALFATE 1 G/10 ML UDC PO SCH ×4 (05:02→21:18)
[2020-03-27 06:41] LABS: CHLORIDE 103 mEq/L (98-107)
[2020-03-27 06:59] LABS: HEMATOCRIT. 24.5 % (36.0-48.0); HEMOGLOBIN. 8.3 g/dL (12.0-16.0); MEAN CORPUSCULAR HEMOGLOBIN 30.3 pg (28.0-32.0); MEAN CORPUSCULAR VOLUME 89.1 fL (81.0-99.0); RED BLOOD CELL COUNT 2.75 mill/uL (4.2-5.4); RED CELL DISTRIBUTION WIDTH 15.9 % (11.6-14.6)
[2020-03-27] MEDS: INSULIN LISPRO 100 UNITS/ML SUBCUT SCH ×4 (07:30→22:36)
[2020-03-27] MEDS: BLOOD SUGAR DIAGNOSTIC STRIP TEST SCH ×4 (07:30→21:00)
[2020-03-27 09:10] LABS: PLATELET ESTIMATE INCREASED
[2020-03-27 09:11] LABS: MEAN PLATELET VOLUME 8.3 fl (7.4-10.4); PLATELET 536 x1000/uL (130-400)
[2020-03-27] MEDS: MULTIVITAMINS,THER W-MINERALS TABLET PO SCH (09:17)
[2020-03-27] MEDS: PANTOPRAZOLE SODIUM 40 MG/VIAL IV SCH ×2 (09:17→21:18)
[2020-03-27] MEDS: FUROSEMIDE 40MG/4ML VIAL IVP SCH (09:17)
[2020-03-27] MEDS: ASPIRIN 81MG EC TABLET PO SCH (09:18)
[2020-03-27] MEDS: KETOROLAC 30MG/ML VIAL IV PRN ×2 (09:18→21:17)
[2020-03-27] MEDS: INSULIN GLARGINE UD 100 UNITS/ML SYR SUBCUT SCH ×2 (10:40→22:36)
[2020-03-27] MEDS: ACETAMINOPHEN 650MG/20.3ML UDC NG PRN (12:32)
[2020-03-27] MEDS: BISACODYL 10MG SUPP PR PRN (21:52)
[2020-03-27] MEDS: ZOLPIDEM TARTRATE 5MG TABLET PO PRN (22:37)
[2020-03-28] VITALS (12 sets, daily range): BP systolic 111–146; BP diastolic 23–87
[2020-03-28] MEDS: ONDANSETRON HCL 4MG/2ML INJ IV PRN (00:05)
[2020-03-28] MEDS: ACETAMINOPHEN 650MG/20.3ML UDC NG PRN ×3 (00:05→20:38)
[2020-03-28] MEDS: KETOROLAC 30MG/ML VIAL IV PRN ×3 (03:39→20:38)
[2020-03-28] MEDS: SUCRALFATE 1 G/10 ML UDC PO SCH ×4 (05:21→20:38)
[2020-03-28] MEDS: GABAPENTIN 100MG CAPSULE PO SCH ×3 (05:22→20:38)
[2020-03-28] MEDS: METOCLOPRAMIDE HCL 10MG/2ML VIAL IV SCH ×2 (05:22)
[2020-03-28] MEDS: INSULIN LISPRO 100 UNITS/ML SUBCUT SCH ×4 (07:30→21:07)
[2020-03-28] MEDS: MULTIVITAMINS,THER W-MINERALS TABLET PO SCH (08:10)
[2020-03-28] MEDS: ASPIRIN 81MG EC TABLET PO SCH (08:10)
[2020-03-28] MEDS: FUROSEMIDE 40MG/4ML VIAL IVP SCH (08:10)
[2020-03-28] MEDS: PANTOPRAZOLE SODIUM 40 MG/VIAL IV SCH (08:10)
[2020-03-28] MEDS: BLOOD SUGAR DIAGNOSTIC STRIP TEST SCH ×4 (08:25→21:07)
[2020-03-28] MEDS: PANTOPRAZOLE 40MG DR TABLET PO SCH ×2 (09:00→20:44)
[2020-03-28] MEDS ORDERED: FUROSEMIDE 40MG TABLET PO SCH (09:00)
[2020-03-28] MEDS: INSULIN GLARGINE UD 100 UNITS/ML SYR SUBCUT SCH ×2 (10:40→21:07)
[2020-03-28] MEDS: METOCLOPRAMIDE HCL 5MG TABLET PO SCH ×3 (12:45→20:38)
== END 2020-03-28 21:20 | DRG 870 ==
LOC: ER 16:59 → EDBD 16:59 → MICUNO 19:47 → ENRESERV 20:03 → 5EST 03-08 15:15
PROVIDERS: ADMIT Internal Medicine; ATTEND Internal Medicine
PROC: 5A1955Z Respiratory Ventilation, Greater than 96 Consecutive Hours (ICD-10-PCS; principal; 2020-03-06)
PROC: 0BH17EZ Insertion of Endotracheal Airway into Trachea, Via Natural or Artificial Opening (ICD-10-PCS; 2020-03-06)
PROC: 30233N1 Transfusion of Nonautologous Red Blood Cells into Peripheral Vein, Percutaneous Approach (ICD-10-PCS; 2020-03-06)
PROC: 05HY33Z Insertion of Infusion Device into Upper Vein, Percutaneous Approach (ICD-10-PCS; 2020-03-06)
PROC: B54MZZA Ultrasonography of Right Upper Extremity Veins, Guidance (ICD-10-PCS; 2020-03-06)
PROC: 5A12012 Performance of Cardiac Output, Single, Manual (ICD-10-PCS; 2020-03-06)
PROC: 0DB68ZZ Excision of Stomach, Via Natural or Artificial Opening Endoscopic (ICD-10-PCS; 2020-03-11)
DX: A41.9 Sepsis, unspecified organism (principal); I21.4 Non-ST elevation (NSTEMI) myocardial infarction; I50.41 Acute combined systolic (congestive) and diastolic (congestive) heart failure; J18.9 Pneumonia, unspecified organism; J96.01 Acute respiratory failure with hypoxia; R65.21 Severe sepsis with septic shock; K26.4 Chronic or unspecified duodenal ulcer with hemorrhage; E44.0 Moderate protein-calorie malnutrition; N17.9 Acute kidney failure, unspecified; N39.0 Urinary tract infection, site not specified; E87.0 Hyperosmolality and hypernatremia; D50.9 Iron deficiency anemia, unspecified; E11.649 Type 2 diabetes mellitus with hypoglycemia without coma; E78.00 Pure hypercholesterolemia, unspecified; E78.5 Hyperlipidemia, unspecified; I11.0 Hypertensive heart disease with heart failure; Z20.828 Contact with and (suspected) exposure to other viral communicable diseases; E87.6 Hypokalemia; K44.9 Diaphragmatic hernia without obstruction or gangrene; K29.80 Duodenitis without bleeding; R54 Age-related physical debility; K29.50 Unspecified chronic gastritis without bleeding; I34.0 Nonrheumatic mitral (valve) insufficiency; Z79.899 Other long term (current) drug therapy; Z79.1 Long term (current) use of non-steroidal anti-inflammatories (NSAID); Z68.26 Body mass index [BMI] 26.0-26.9, adult; Z78.1 Physical restraint status
CPT/HCPCS: 36415; 36600; 71045; 74018; 78278; 80048; 80053; 80202; 80305; 81003; 82270; 82375; 82607; 82728; 82746; 82805; 82962; 83036; 83540; 83550; 83735; 83880; 84100; 84132; 84443; 84478; 84484; 85014; 85018; 85025; 85044; 86140; 86850; 86900; 86920; 87070; 87635; 88305; 88312; 88313; 92610; 92950; 93005; 93306; 94002; 94003; 94640; 97162; 97166; 97530; 97535; 99291; A9560; C9113; J0456; J0461; J0692; J0696; J1815; J1885; J1940; J2060; J2250; J2370; J2405; J2704; J2765; J3010; J3370; J3420; J3480; J3490; J7030; J7050; J7060; J7608; J8597; P9016; U0003-CS

== ENCOUNTER 2022-01-23 13:19 | Emergency (ER) | payer MEDICARE, MEDICAID ==
[~2022-01-23] VITALS: Ht 152.4 cm; Wt 69.0 kg
[~2022-01-23 13:19] MED LIST: LISI20TA31 MT; METF1000 MT; NAPR-681 MT; [UNRECOGNIZED DRUG - CODE] PO
[2022-01-23 15:34] LABS: BASOPHILS % 0.5 % (0.0-2.0); EOSINOPHILS % 2.8 % (0.0-5.0); HEMATOCRIT. 31.8 % (36.0-48.0); HEMOGLOBIN. 10.6 g/dL (12.0-16.0); LYMPHOCYTES % 23.7 % (20.0-50.0); MEAN CORPUSCULAR HEMOGLOBIN 28.1 pg (28.0-32.0); MEAN CORPUSCULAR VOLUME 84.5 fL (81.0-99.0); MEAN PLATELET VOLUME 8.3 fl (7.4-10.4); MONOCYTES % 8.4 % (2.0-8.0); NEUTROPHILS % 64.6 % (40.0-76.0); PLATELET 246 x1000/uL (130-400); RED BLOOD CELL COUNT 3.76 mill/uL (4.2-5.4); RED CELL DISTRIBUTION WIDTH 15.1 % (11.6-14.6)
[2022-01-23 15:44] LABS: CHLORIDE 101 mEq/L (98-107)
[2022-01-23 16:09] VITALS: BP 165/74
== END 2022-01-23 17:44 | disposition home or self-care (01) ==
LOC: ER 15:54
DX: E11.621 Type 2 diabetes mellitus with foot ulcer (principal); L97.521 Non-pressure chronic ulcer of other part of left foot limited to breakdown of skin; E78.00 Pure hypercholesterolemia, unspecified; I10 Essential (primary) hypertension; Z86.73 Personal history of transient ischemic attack (TIA), and cerebral infarction without residual deficits
CPT/HCPCS: 36415; 73610; 80053; 82962; 85025; 99284